=== PATIENT | male | born 1985 | race Caucasian/White ===

== ENCOUNTER 2022-03-11 16:28 | Emergency (ER) | payer BC ==
--- OUTSIDE RECORDS SUMMARY | 2022-03-11 16:47 | XMS REPORT | Continuity of Care Document ---
:1985 Author Organization [facility] t Address [address] [place] [address] Care Team Providers Name Role Phone James Tam Jr. Primary Care Physician Therapy, Adc Covid Infusion Attending Clinician Unavailable Elgin Acharya MD Attending Clinician ELGIN ACHARYA Attending Clinician Unavailable Doctor Unassigned, [place] Attending Clinician Unavailable Payers Payer Name Policy Type Policy Number Effective Date Expiration Date S ource Problems This patient has no known problems. Allergies, Adverse Reactions, Alerts Allergy Allergy Status Severity Reaction(s) Onset Inactive Treating Comm ents Source Name Type Date Date Clinician NO KNOWN Drug Active Univers ALLERGIE Class it[facility] of [facility] Social History Social Habit Start Date Stop Date Quantity Comments Source Sex Assigned At [birth year] [facility] 00:00:00 00:00:00 [facility] Smoking Status Start Date Stop Date Source Unknown if ever smoked [facility] Medications Ordered Filled Start Stop Current Ordering Indication Dosage Frequency Signature Comments Components Source Medication Medication Date Date Medication? Clinician (SIG) Name Name casirivimab 2020- No [id number] 1200mg 1,200 mg, Univers -imdevimab 02-14 Subcutaneo it y of (REGEN-COV 20:15: 18:48 [place], [place]CE, [place] (EUA[place] 00 :00 1 dose, Medical injection Esperanza 02/14/21 Bran ch 1,200 mg at 1515, Routine casirivimab No [id number] 1200mg 1,200 mg, Univers -imdevimab 02-14 Subcutaneo it y of (REGEN-COV 20:15: 18:48 us, ONCE, [place] (EUA)) 00 :00 1 dose, Medical injection Esperanza 02/14/21 Bran ch 1,200 mg at 1515, Routine Vital Signs Vital Name Observation Time Observation Value Comments Source Systolic blood 2021-02-14 19:31:00 108 mm[Hg] Univer [facility] Diastolic blood 2021-02-14 19:31:00 75 mm[Hg] Unive rsity [facility] Heart rate 2021-02-14 19:31:00 82 /min [facility] Body temperature 2021-02-14 19:31:00 36.56 [facility] Respiratory rate 2021-02-14 19:31:00 18 /min General acute hospital Oxygen saturation in 2021-02-14 19:31:00 97 /min [facility] Arterial blood by [facility] Pulse oximetry [place] Body height 2021-02-14 18:48:00 175.3 cm [facility] Body weight 2021-02-14 18:48:00 86.183 kg [facility] BMI 2021-02-14 18:48:00 28.06 kg/m2 [facility] Procedures Procedure Date / Time Performed Performing Clinician Sourc e [id number] CONSENT 2021-02-14 05:01:00 [facility] Start End Encounter Admission Attending Care Care Encounter Source Date/Time Date/Time Type Type Clinicians Facility Department ID 2021-02-14 2021-02-14 Nurse Therapy, Adc Covid Infusion [facility] [id number] Univers 13:58:55 14:58:55 Visit Elgin Acharya [id number] [id number] [id number] [facility] [address] 2021-02-14 2021-02-14 Outpatient R NESHA [facility] [id number] Univers 14:00:00 14:00:00 ELGIN [facility]rell [facility] 2021-02-14 2021-02-14 Orders Doctor ABDIEL [id number] Univers 00:00:00 00:00:00 Only Unassigned, JONNIE [id number] ity of [place] [facility] [id number] Naren as [phone] [facility] [address] Results This patient has no known results.
[2022-03-11] MEDS ORDERED: dexAMETHasone 10 MG/ML VIAL ONE (17:59)
[2022-03-11] MEDS ORDERED: IPRATROPIUM BROM 0.5MG/2.5ML ONE (17:59)
[2022-03-11] MEDS ORDERED: ALBUTEROL 2.5 MG/3 ML NEB SOL ONE (17:59)
[2022-03-11 19:00] LABS: Absolute Lymphocytes (CBC) 3.7 K/uL (0.7-4.9); Hematocrit 42.4 % (39.6-49.0); Lymphocytes % 54.9 % (15.3-44.8); MCV 91.4 fL (80-100); MPV 8.4 fL (7.6-11.3); RBC Red Blood Cell Count 4.63 M/uL (4.33-5.43)
[2022-03-11 19:08] LABS: Protime INR 1.01
[2022-03-11 19:17] LABS: Bilirubin Direct 0.1 mg/dL (0-0.2); Bilirubin Total 0.3 mg/dL (0.2-1.0); Magnesium 2.4 mg/dL (1.8-2.4); Potassium 3.6 mmol/L (3.5-5.1); Protein, Total 7.7 g/dL (6.4-8.2); Troponin High Sensitivity 4.6 pg/mL (<58.9)
--- NOTE | 2022-03-11 19:56 | EDPHYS ---
Physician Documentation [facility] Name: Maxime Layton Age: 36 yrs Sex: Male : 1985 Arrival Date: 03/11/2022 Time: 16:31 Bed 26 Private MD: ED Physician Massimo Camacho HPI: 03/11 18:31 This 36 yrs old Male presents to ER via Ambulatory with complaints of Shortness Of pm1 Breath. 18:31 The patient has shortness of breath at rest. Onset: The symptoms/episode began/occurred pm1 3 week(s) ago, weekend. Duration: The symptoms are continuous. The patient's shortness of breath is aggravated by nothing, is alleviated by nothing. Associated signs and symptoms: Pertinent positives: chest pain, productive cough, Pertinent negatives: fever, nausea, vomiting. Severity of symptoms: in the emergency department the symptoms are unchanged. The patient has been recently seen at an urgent care, today, for similar complaints, X-rays were performed, and was sent to the [facility] Emergency Department for further evaluation. Historical: - Allergies: 16:36 No Known Allergies; bm7 - Home Meds: 16:36 Xopenex 0.63 mg/3 mL Nebulizer nebu 3 mL every 8 hours [Active]; bm7 - PMHx: 16:36 None; bm7 - PSHx: 16:36 Appendectomy; Tonsillectomy; bm7 - Immunization history:: Adult Immunizations up to date, Client reports receiving the 2nd dose of the Covid vaccine, Client reports receiving the 1st dose of the Covid vaccine. - Social history:: Smoking status: Patient denies any tobacco usage or history of. ROS: 18:31 Constitutional: Negative for fever, chills, and weight loss. pm1 18:31 Abdomen/GI: Negative for abdominal pain, nausea, vomiting, diarrhea, and constipation, Back: Negative for injury and pain, MS/Extremity: Negative for injury and deformity, Skin: Negative for injury, rash, and discoloration, Neuro: Negative for headache, weakness, numbness, tingling, and seizure. 18:31 Cardiovascular: Positive for chest pain, with cough. 18:31 Respiratory: Positive for cough, shortness of breath. 18:31 All other systems are negative. Exam: 18:31 Constitutional: This is a well developed, well nourished patient who is awake, alert, pm1 and in no acute distress. Head/Face: Normocephalic, atraumatic. 18:31 Back: No spinal tenderness. No costovertebral tenderness. Full range of motion. Skin: Warm, dry with normal turgor. Normal color with no rashes, no lesions, and no evidence of cellulitis. MS/ Extremity: Pulses equal, no cyanosis. Neurovascular intact. Full, normal range of motion. 18:31 Eyes: Exam is negative for acute changes, Periorbital structures: appear normal, Pupils: no acute changes. 18:31 ENT: Exam is negative for acute changes, Mouth: no acute changes, Lips: normal, moist, Oral mucosa: normal, pink and intact, moist. 18:31 Cardiovascular: Exam negative for acute changes, Rate: bradycardic, Rhythm: regular, Pulses: no pulse deficits are appreciated, Heart sounds: normal, normal S1and S2. 18:31 Respiratory: Exam negative for acute changes, respiratory distress, shortness of breath, Breath sounds: are clear throughout. 18:31 Abdomen/GI: Exam negative for acute changes, Inspection: abdomen appears normal, Palpation: abdomen is soft and non-tender, in all quadrants. 18:31 Neuro: Exam negative for acute changes, Orientation: is normal, Mentation: is normal, Motor: is normal, moves all fours. Vital Signs: 16:34 BP 128 / 79; Pulse 66; Resp 16; Temp 98.2(TE); Pulse Ox 100% on R/A; Weight 88.45 kg bm7 (R); Height 5 ft. 9 in. (175.26 cm); Pain 3/10; 16:34 Body Mass Index 28.80 (88.45 kg, 175.26 cm) bm7 MDM: 17:35 Patient medically screened. anthony 18:32 ED course: Patient with xray from urgent care prior to arrival that was read by a pm1 radiologist that is negative for any acute findings. Therefore no need to repeat the xray. He was sent by the urgent care for evaluation due to the negative xray result with continued shortness of breath. 19:53 Data reviewed: vital signs. Data interpreted: Pulse oximetry: on room air is 100 %. pm1 Interpretation: normal. 19:53 Counseling: I had a detailed discussion with the patient and/or guardian regarding: the pm1 historical points, exam findings, and any diagnostic results supporting the discharge/admit diagnosis, lab results, the need for outpatient follow up, to return to the emergency department if symptoms worsen or persist or if there are any questions or concerns that arise at home. 03/11 18:31 Order name: Basic Metabolic Panel; Complete Time: 19:22 pm03/11 18:31 Order name: CBC with Diff; Complete Time: 19:04 pm03/11 18:31 Order name: D-Dimer; Complete Time: 19:22 pm03/11 18:31 Order name: LFT's; Complete Time: 19:22 pm03/11 18:31 Order name: Magnesium; Complete Time: 19:22 pm03/11 18:31 Order name: NT PRO-BNP; Complete Time: 19:22 pm03/11 18:31 Order name: PT-INR; Complete Time: 19:22 pm03/11 18:31 Order name: Troponin HS; Complete Time: 19:22 pm03/11 18:31 Order name: EKG; Complete Time: 18:32 pm1 03/11 18:31 Order name: Cardiac monitoring; Complete Time: 18:37 pm1 03/11 18:31 Order name: EKG - Nurse/Tech; Complete Time: 18:37 pm03/11 18:31 Order name: IV Saline Lock; Complete Time: 18:37 pm1 03/11 18:31 Order name: Labs collected and sent; Complete Time: 18:37 pm03/11 18:31 Order name: O2 Per Protocol; Complete Time: 18:37 pm03/11 18:31 Order name: O2 Sat Monitoring; Complete Time: 18:37 pm1 EC:57 Rate is 54 beats/min. Rhythm is regular, Sinus bradycardia with No ectopy. QRS [place] is pm1 Normal. VA interval is normal. QRS interval is normal. QT interval is normal. No Q waves. T waves are Normal. No ST changes noted. Clinical impression: Sinus bradycardia. Administered Medications: 18:01 Drug: Decadron (dexamethasone) 10 mg Route: IM; Site: left deltoid; [facility] 18: Drug: Albuterol 2.5 mg Route: Inhalation; 5 18:01 Drug: AtroVENT (ipratropium) Aerosol 0.5 mg Route: Inhalation; 5 20:21 Drug: Tussionex Pennkinetic ER (chlorpheniramine-hydrocodone) Suspension 5 ml Route: PO;jh5 Disposition Summary: 03/11/22 19:56 Discharge Ordered Location: Home pm1 Problem: new pm1 Symptoms: have improved pm1 Condition: Stable pm1 Diagnosis - Acute upper respiratory infection, unspecified pm1 Followup: pm1 - With: Emergency Department - When: As needed - Reason: Worsening of condition Followup: pm1 - With: Private Physician - When: 2 - 3 days - Reason: Recheck today's complaints, Continuance of care, Re-evaluation by your physician Discharge Instructions: - Discharge Summary Sheet pm1 - Antibiotic Resistance pm1 - Upper Respiratory Infection, Adult pm1 - Viral Respiratory Infection pm1 Forms: - Medication Reconciliation Form pm1 - Thank You Letter pm1 - Antibiotic Education pm1 - Prescription Opioid Use pm1 Prescriptions: - Medrol (Nate) 4 mg Oral Tablets, Dose Pack - take 1 tablet by ORAL route as directed - follow package instructions; 1 pm1 packet; Refills: 0, Product Selection Permitted - Guaifenesin AC 10-100 mg/5 mL Oral Liquid - take 10 milliliters by ORAL route every 4 hours As needed; 240 milliliter; pm1 Refills: 0, Product Selection Permitted Signatures: Dispatcher [employer] EDMassimo Fay MD MD cha Marinas, Patrick, AIRCRAFT SYSTEMS TECHNICIAN AIRCRAFT SYSTEMS TECHNICIAN pm1 Keisha Alberto, RN RN bm7 Sammi Steele RN RN jh5 Corrections: (The following items were deleted from the chart) 16:37 16:36 PMHx: Asthma; bm7 bm7
--- NOTE | 2022-03-11 19:56 | ER ---
Nurse's Notes [facility] Name: Maxime Layton Age: 36 yrs Sex: Male : 1985 Arrival Date: 03/11/2022 Time: 16:31 Bed 26 Private MD: Diagnosis: Acute upper respiratory infection, unspecified Presentation: 03/11 16:34 Chief complaint: Patient states: I have had to use my inhaler five times today. I went [facility] to urgent care and they told me to come here because my chest xray was normal and I was still SOB. Coronavirus screen: Client presents with at least one sign or symptom that may indicate coronavirus-19. Ebola Screen: No symptoms or risks identified at this time. Initial Sepsis Screen: Does the patient meet any 2 criteria? No. Patient's initial sepsis screen is negative. Does the patient have a suspected source of infection? No. Patient's initial sepsis screen is negative. Risk Assessment: Do you want to hurt yourself or someone else? Patient reports no desire to harm self or others. Onset of symptoms is unknown. 16:34 Method Of Arrival: Ambulatory [facility] 16:34 Acuity: JACQUES 3 bm7 Triage Assessment: 16:36 General: Appears in no apparent distress. uncomfortable, Behavior is calm, cooperative, bm7 appropriate for age. Pain: Complains of pain in right leg and left leg. EENT: No deficits noted. No signs and/or symptoms were reported regarding the EENT system. Neuro: No deficits noted. Cardiovascular: No deficits noted. Respiratory: Reports shortness of breath at rest on exertion Airway is patent Respiratory effort is even, unlabored, Respiratory pattern is regular, symmetrical, Breath sounds are clear bilaterally. Onset: The symptoms/episode began/occurred gradually, the patient has mild shortness of breath. GI: No deficits noted. No signs and/or symptoms were reported involving the gastrointestinal system. : No deficits noted. No signs and/or symptoms were reported regarding the genitourinary system. Derm: No deficits noted. No signs and/or symptoms reported regarding the dermatologic system. Musculoskeletal: No deficits noted. No signs and/or symptoms reported regarding the musculoskeletal system. Historical: - Allergies: 16:36 No Known Allergies; [facility] - Home Meds: 16:36 Xopenex 0.63 mg/3 mL Nebulizer nebu 3 mL every 8 hours [Active]; 7 - PMHx: 16:36 None; bm7 - PSHx: 16:36 Appendectomy; Tonsillectomy; 7 - Immunization history:: Adult Immunizations up to date, Client reports receiving the 2nd dose of the Covid vaccine, Client reports receiving the 1st dose of the Covid vaccine. - Social history:: Smoking status: Patient denies any tobacco usage or history of. Vital Signs: 16:34 BP 128 / 79; Pulse 66; Resp 16; Temp 98.2(TE); Pulse Ox 100% on R/A; Weight 88.45 kg bm7 (R); Height 5 ft. 9 in. (175.26 cm); Pain 3/10; 16:34 Body Mass Index 28.80 (88.45 kg, 175.26 cm) 7 ED Course: 16:31 Patient arrived in ED. mr 16:36 Triage completed. bm7 16:36 Arm band placed on left wrist. bm7 17:34 Konstantin Perkins NP is PHCP. pm1 17:34 Massimo Camacho MD is Attending Physician. pm1 17:53 Sammi Steele, RN is Primary Nurse. [facility] Administered Medications: 18:01 Drug: Decadron (dexamethasone) 10 mg Route: IM; Site: left deltoid; [facility] 18:01 Drug: Albuterol 2.5 mg Route: Inhalation; [facility] 18:01 Drug: AtroVENT (ipratropium) Aerosol 0.5 mg Route: Inhalation; [facility] 20:21 Drug: Tussionex Pennkinetic ER (chlorpheniramine-hydrocodone) Suspension 5 ml Route: PO;[facility] Outcome: 19:56 Discharge ordered by . pm1 20:22 Patient left the ED. [facility] Signatures: Jeanna Burnette mr Konstantin Perkins, EILEEN AIR PUMPER pm1 Keisha Alberto RN RN [facility] Sammi Steele, [place] RN [facility] Corrections: (The following items were deleted from the chart) 16:37 16:36 PMHx: Asthma; 7 [facility]
[2022-03-11] MEDS ORDERED: HYDROCODONE/CHLORPHEN 5 ML/OSYR ONE (20:15)
--- NOTE | 2022-03-12 13:06 | EKG ---
Test Date: 2022-03-11 Test Time: 18:42:18 Electric Motor Tester: TM MEASUREMENT RESULTS: Intervals: Rate: 54 CA: 124 QRSD: 94 QT: 434 QTc: 411 [place]: P: 25 CA: 124 QRS: 49 T: 44 INTERPRETIVE STATEMENTS: Sinus bradycardia Otherwise normal ECG No previous ECG available for comparison Electronically Signed On 03-12-22 13:04:52 CDT by Margarito Yancey
[2022-03-14 00:23] VITALS: BP 128/79; TEMP 98.2; O2SAT 100
== END 2022-03-11 20:22 | disposition home or self-care (01) ==
LOC: ER 16:28
DX: J06.9 Acute upper respiratory infection, unspecified (principal)
CPT/HCPCS: 93005; 85025; 80048; 36415; 83735; 85610; 85379; 80076; 84484; 83880; 96372; 99284; J1100

== ENCOUNTER 2023-12-15 22:34 | Emergency (ER) | payer BC ==
--- OUTSIDE RECORDS SUMMARY | 2023-12-15 22:41 | XMS REPORT | Continuity of Care Document ---
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 HEPATITIS A 2012-09-22 00:00:00 Completed [facility] Typhoid Vaccine, Vi Capsular Polysaccharide, IM 2012-09-22 00:00:00 Completed [facility] Anthrax Vaccine 2012-09-22 00:00:00 Completed [facility] Influenza Virus Vaccine Nasal 2012-09-22 00:00:00 Completed [facility] HEPATITIS A 2012-09-22 00:00:00 Completed [facility] Typhoid Vaccine, Vi Capsular Polysaccharide, IM 2012-09-22 00:00:00 Completed [facility] Anthrax Vaccine 2012-09-22 00:00:00 Completed [facility] Influenza Virus Vaccine Nasal 2012-09-22 00:00:00 Completed [facility] HEPATITIS A 2012-09-22 00:00:00 Completed [facility] Typhoid Vaccine, Vi Capsular Polysaccharide, IM 2012-09-22 00:00:00 Completed [facility] Anthrax Vaccine 2012-09-22 00:00:00 Completed [facility] Influenza Virus Vaccine Nasal 2012-09-22 00:00:00 Completed [facility] HEPATITIS A 2012-09-22 00:00:00 Completed [facility] Typhoid Vaccine, Vi Capsular Polysaccharide, IM 2012-09-22 00:00:00 Completed [facility] Anthrax Vaccine 2012-09-22 00:00:00 Completed [facility] Influenza Virus Vaccine Nasal 2012-09-22 00:00:00 Completed [facility] HEPATITIS A 2012-09-22 00:00:00 Completed [facility] Typhoid Vaccine, Vi Capsular Polysaccharide, IM 2012-09-22 00:00:00 Completed [facility] Anthrax Vaccine 2012-09-22 00:00:00 Completed [facility] Influenza Virus Vaccine Nasal 2012-09-22 00:00:00 Completed [facility] HEPATITIS A 2012-09-22 00:00:00 Completed [facility] Typhoid Vaccine, Vi Capsular Polysaccharide, IM 2012-09-22 00:00:00 Completed [facility] Anthrax Vaccine 2012-09-22 00:00:00 Completed [facility] HEPATITIS A 2012-09-22 00:00:00 Completed [facility] Influenza Virus Vaccine Nasal 2012-09-22 00:00:00 Completed [facility] Typhoid Vaccine, Vi Capsular Polysaccharide, IM 2012-09-22 00:00:00 Completed [facility] HEPATITIS A 2012-09-22 00:00:00 Completed [facility] Typhoid Vaccine, Vi Capsular Polysaccharide, IM 2012-09-22 00:00:00 Completed [facility] Anthrax Vaccine 2012-09-22 00:00:00 Completed [facility] Anthrax Vaccine 2012-09-22 00:00:00 Completed [facility] Influenza Virus Vaccine Nasal 2012-09-22 00:00:00 Completed [facility] HEPATITIS A 2012-09-22 00:00:00 Completed [facility] Typhoid Vaccine, Vi Capsular Polysaccharide, IM 2012-09-22 00:00:00 Completed [facility] Anthrax Vaccine 2012-09-22 00:00:00 Completed [facility] Influenza Virus Vaccine Nasal 2012-09-22 00:00:00 Completed [facility] HEPATITIS A 2012-09-22 00:00:00 Completed [facility] Typhoid Vaccine, Vi Capsular Polysaccharide, IM 2012-09-22 00:00:00 Completed [facility] Anthrax Vaccine 2012-09-22 00:00:00 Completed [facility] Influenza Virus Vaccine Nasal 2012-09-22 00:00:00 Completed [facility] Influenza Virus Vaccine Nasal 2012-09-22 00:00:00 Completed [facility] HEPATITIS A 2012-09-22 00:00:00 Completed [facility] Typhoid Vaccine, Vi Capsular Polysaccharide, IM 2012-09-22 00:00:00 Completed [facility] Anthrax Vaccine 2012-09-22 00:00:00 Completed [facility] Influenza Virus Vaccine Nasal 2012-09-22 00:00:00 Completed [facility] HEPATITIS A 2012-09-22 00:00:00 Completed [facility] Typhoid Vaccine, Vi Capsular Polysaccharide, IM 2012-09-22 00:00:00 Completed [facility] Anthrax Vaccine 2012-09-22 00:00:00 Completed [facility] Influenza Virus Vaccine Nasal 2012-09-22 00:00:00 Completed [facility] HEPATITIS A 2012-09-22 00:00:00 Completed [facility] Typhoid Vaccine, Vi Capsular Polysaccharide, IM 2012-09-22 00:00:00 Completed [facility] Anthrax Vaccine 2012-09-22 00:00:00 Completed [facility] Influenza Virus Vaccine Nasal 2012-09-22 00:00:00 Completed [facility] HEPATITIS A 2012-09-22 00:00:00 Completed [facility] Typhoid Vaccine, Vi Capsular Polysaccharide, IM 2012-09-22 00:00:00 Completed [facility] Anthrax Vaccine 2012-09-22 00:00:00 Completed [facility] Influenza Virus Vaccine Nasal 2012-09-22 00:00:00 Completed [facility] Influenza Virus Vaccine Nasal 2011-03-15 00:00:00 Completed [facility] Influenza Virus Vaccine Nasal 2011-03-15 00:00:00 Completed [facility] Influenza Virus Vaccine Nasal 2011-03-15 00:00:00 Completed [facility] Influenza Virus Vaccine Nasal 2011-03-15 00:00:00 Completed [facility] Influenza Virus Vaccine Nasal 2011-03-15 00:00:00 Completed [facility] Influenza Virus Vaccine Nasal 2011-03-15 00:00:00 Completed [facility] Influenza Virus Vaccine Nasal 2011-03-15 00:00:00 Completed [facility] Influenza Virus Vaccine Nasal 2011-03-15 00:00:00 Completed [facility] Influenza Virus Vaccine Nasal 2011-03-15 00:00:00 Completed [facility] Influenza Virus Vaccine Nasal 2011-03-15 00:00:00 Completed [facility] Influenza Virus Vaccine Nasal 2011-03-15 00:00:00 Completed [facility] Influenza Virus Vaccine Nasal 2011-03-15 00:00:00 Completed [facility] Influenza Virus Vaccine Nasal 2011-03-15 00:00:00 Completed [facility] Influenza Virus Vaccine Nasal 2011-03-15 00:00:00 Completed [facility] Influenza Virus Vaccine Nasal 2011-03-15 00:00:00 Completed [facility] Influenza Virus Vaccine Nasal 2011-03-15 00:00:00 Completed [facility] Influenza Virus Vaccine Nasal 2011-03-15 00:00:00 Completed [facility] Influenza Virus Vaccine Nasal 2011-03-15 00:00:00 Completed [facility] Influenza Virus Vaccine Nasal 2011-03-15 00:00:00 Completed [facility] Influenza Virus Vaccine Nasal 2011-03-15 00:00:00 Completed [facility] Influenza Virus Vaccine Nasal 2011-03-15 00:00:00 Completed [facility] Influenza Virus Vaccine Nasal 2011-03-15 00:00:00 Completed [facility] Influenza Virus Vaccine Nasal 2011-03-15 00:00:00 Completed [facility] Influenza Virus Vaccine Nasal 2011-03-15 00:00:00 Completed [facility] Influenza Virus Vaccine Nasal 2011-03-15 00:00:00 Completed [facility] Influenza Virus Vaccine Nasal 2011-03-15 00:00:00 Completed [facility] TDAP 2010-11-23 00:00:00 Completed [facility] TDAP 2010-11-23 00:00:00 Completed [facility] TDAP 2010-11-23 00:00:00 Completed [facility] TDAP 2010-11-23 00:00:00 Completed [facility] TDAP 2010-11-23 00:00:00 Completed [facility] TDAP 2010-11-23 00:00:00 Completed [facility] TDAP 2010-11-23 00:00:00 Completed [facility] TDAP 2010-11-23 00:00:00 Completed [facility] TDAP 2010-11-23 00:00:00 Completed [facility] TDAP 2010-11-23 00:00:00 Completed [facility] TDAP 2010-11-23 00:00:00 Completed [facility] TDAP 2010-11-23 00:00:00 Completed [facility] TDAP 2010-11-23 00:00:00 Completed [facility] TDAP 2010-11-23 00:00:00 Completed [facility] TDAP 2010-11-23 00:00:00 Completed [facility] TDAP 2010-11-23 00:00:00 Completed [facility] TDAP 2010-11-23 00:00:00 Completed [facility] TDAP 2010-11-23 00:00:00 Completed [facility] TDAP 2010-11-23 00:00:00 Completed [facility] TDAP 2010-11-23 00:00:00 Completed [facility] TDAP 2010-11-23 00:00:00 Completed [facility] TDAP 2010-11-23 00:00:00 Completed [facility] TDAP 2010-11-23 00:00:00 Completed [facility] TDAP 2010-11-23 00:00:00 Completed [facility] TDAP 2010-11-23 00:00:00 Completed [facility] TDAP 2010-11-23 00:00:00 Completed [facility] Influenza Virus Vaccine Nasal 2008-06-24 00:00:00 Completed [facility] Influenza Virus Vaccine Nasal 2008-06-24 00:00:00 Completed [facility] Influenza Virus Vaccine Nasal 2008-06-24 00:00:00 Completed [facility] Influenza Virus Vaccine Nasal 2008-06-24 00:00:00 Completed [facility] Influenza Virus Vaccine Nasal 2008-06-24 00:00:00 Completed [facility] Influenza Virus Vaccine Nasal 2008-06-24 00:00:00 Completed [facility] Influenza Virus Vaccine Nasal 2008-06-24 00:00:00 Completed [facility] Influenza Virus Vaccine Nasal 2008-06-24 00:00:00 Completed [facility] Influenza Virus Vaccine Nasal 2008-06-24 00:00:00 Completed [facility] Influenza Virus Vaccine Nasal 2008-06-24 00:00:00 Completed [facility] Influenza Virus Vaccine Nasal 2008-06-24 00:00:00 Completed [facility] Influenza Virus Vaccine Nasal 2008-06-24 00:00:00 Completed [facility] Influenza Virus Vaccine Nasal 2008-06-24 00:00:00 Completed [facility] Influenza Virus Vaccine Nasal 2008-06-24 00:00:00 Completed [facility] Influenza Virus Vaccine Nasal 2008-06-24 00:00:00 Completed [facility] Influenza Virus Vaccine Nasal 2008-06-24 00:00:00 Completed [facility] Influenza Virus Vaccine Nasal 2008-06-24 00:00:00 Completed [facility] Influenza Virus Vaccine Nasal 2008-06-24 00:00:00 Completed [facility] Influenza Virus Vaccine Nasal 2008-06-24 00:00:00 Completed [facility] Influenza Virus Vaccine Nasal 2008-06-24 00:00:00 Completed [facility] Influenza Virus Vaccine Nasal 2008-06-24 00:00:00 Completed [facility] Influenza Virus Vaccine Nasal 2008-06-24 00:00:00 Completed [facility] Influenza Virus Vaccine Nasal 2008-06-24 00:00:00 Completed [facility] Influenza Virus Vaccine Nasal 2008-06-24 00:00:00 Completed [facility] Influenza Virus Vaccine Nasal 2008-06-24 00:00:00 Completed [facility] Influenza Virus Vaccine Nasal 2008-06-24 00:00:00 Completed [facility] Flu Split Virus, PSA 2006-05-13 00:00:00 Completed [facility] Flu Split Virus, PSA 2006-05-13 00:00:00 Completed [facility] Flu Split Virus, PSA 2006-05-13 00:00:00 Completed [facility] Flu Split Virus, PSA 2006-05-13 00:00:00 Completed [facility] Flu Split Virus, PSA 2006-05-13 00:00:00 Completed [facility] Flu Split Virus, PSA 2006-05-13 00:00:00 Completed [facility] Flu Split Virus, PSA 2006-05-13 00:00:00 Completed [facility] Flu Split Virus, PSA 2006-05-13 00:00:00 Completed [facility] Flu Split Virus, PSA 2006-05-13 00:00:00 Completed [facility] Flu Split Virus, PSA 2006-05-13 00:00:00 Completed [facility] Flu Split Virus, PSA 2006-05-13 00:00:00 Completed [facility] Flu Split Virus, PSA 2006-05-13 00:00:00 Completed [facility] Flu Split Virus, PSA 2006-05-13 00:00:00 Completed [facility] Flu Split Virus, PSA 2006-05-13 00:00:00 Completed [facility] Flu Split Virus, PSA 2006-05-13 00:00:00 Completed [facility] Flu Split Virus, PSA 2006-05-13 00:00:00 Completed [facility] Flu Split Virus, PSA 2006-05-13 00:00:00 Completed [facility] Flu Split Virus, PSA 2006-05-13 00:00:00 Completed [facility] Flu Split Virus, PSA 2006-05-13 00:00:00 Completed [facility] Flu Split Virus, PSA 2006-05-13 00:00:00 Completed [facility] Flu Split Virus, PSA 2006-05-13 00:00:00 Completed [facility] Flu Split Virus, PSA 2006-05-13 00:00:00 Completed [facility] Flu Split Virus, PSA 2006-05-13 00:00:00 Completed [facility] Flu Split Virus, PSA 2006-05-13 00:00:00 Completed [facility] Flu Split Virus, PSA 2006-05-13 00:00:00 Completed [facility] Flu Split Virus, PSA 2006-05-13 00:00:00 Completed [facility] Anthrax Vaccine 2005-09-11 00:00:00 Completed [facility] Anthrax Vaccine 2005-09-11 00:00:00 Completed [facility] Anthrax Vaccine 2005-09-11 00:00:00 Completed [facility] Anthrax Vaccine 2005-09-11 00:00:00 Completed [facility] Anthrax Vaccine 2005-09-11 00:00:00 Completed [facility] Anthrax Vaccine 2005-09-11 00:00:00 Completed [facility] Anthrax Vaccine 2005-09-11 00:00:00 Completed [facility] Anthrax Vaccine 2005-09-11 00:00:00 Completed [facility] Anthrax Vaccine 2005-09-11 00:00:00 Completed [facility] Anthrax Vaccine 2005-09-11 00:00:00 Completed [facility] Anthrax Vaccine 2005-09-11 00:00:00 Completed [facility] Anthrax Vaccine 2005-09-11 00:00:00 Completed [facility] Anthrax Vaccine 2005-09-11 00:00:00 Completed [facility] Anthrax Vaccine 2005-09-11 00:00:00 Completed [facility] Anthrax Vaccine 2005-09-11 00:00:00 Completed [facility] Anthrax Vaccine 2005-09-11 00:00:00 Completed [facility] Anthrax Vaccine 2005-09-11 00:00:00 Completed [facility] Anthrax Vaccine 2005-09-11 00:00:00 Completed [facility] Anthrax Vaccine 2005-09-11 00:00:00 Completed [facility] Anthrax Vaccine 2005-09-11 00:00:00 Completed [facility] Anthrax Vaccine 2005-09-11 00:00:00 Completed [facility] Anthrax Vaccine 2005-09-11 00:00:00 Completed [facility] Anthrax Vaccine 2005-09-11 00:00:00 Completed [facility] Anthrax Vaccine 2005-09-11 00:00:00 Completed [facility] Anthrax Vaccine 2005-09-11 00:00:00 Completed [facility] Anthrax Vaccine 2005-09-11 00:00:00 Completed [facility] Anthrax Vaccine 2005-08-26 00:00:00 Completed [facility] Smallpox 2005-08-26 00:00:00 Completed [facility] Anthrax Vaccine 2005-08-26 00:00:00 Completed [facility] Smallpox 2005-08-26 00:00:00 Completed [facility] Anthrax Vaccine 2005-08-26 00:00:00 Completed [facility] Smallpox 2005-08-26 00:00:00 Completed [facility] Anthrax Vaccine 2005-08-26 00:00:00 Completed [facility] Smallpox 2005-08-26 00:00:00 Completed [facility] Anthrax Vaccine 2005-08-26 00:00:00 Completed [facility] Smallpox 2005-08-26 00:00:00 Completed [facility] Anthrax Vaccine 2005-08-26 00:00:00 Completed [facility] Smallpox 2005-08-26 00:00:00 Completed [facility] Anthrax Vaccine 2005-08-26 00:00:00 Completed [facility] Smallpox 2005-08-26 00:00:00 Completed [facility] Anthrax Vaccine 2005-08-26 00:00:00 Completed [facility] Smallpox 2005-08-26 00:00:00 Completed [facility] Anthrax Vaccine 2005-08-26 00:00:00 Completed [facility] Smallpox 2005-08-26 00:00:00 Completed [facility] Anthrax Vaccine 2005-08-26 00:00:00 Completed [facility] Smallpox 2005-08-26 00:00:00 Completed [facility] Anthrax Vaccine 2005-08-26 00:00:00 Completed [facility] Smallpox 2005-08-26 00:00:00 Completed [facility] Anthrax Vaccine 2005-08-26 00:00:00 Completed [facility] Smallpox 2005-08-26 00:00:00 Completed [facility] Anthrax Vaccine 2005-08-26 00:00:00 Completed [facility] Smallpox 2005-08-26 00:00:00 Completed [facility] Anthrax Vaccine 2005-08-26 00:00:00 Completed [facility] Smallpox 2005-08-26 00:00:00 Completed [facility] Anthrax Vaccine 2005-08-26 00:00:00 Completed [facility] Smallpox 2005-08-26 00:00:00 Completed [facility] Anthrax Vaccine 2005-08-26 00:00:00 Completed [facility] Smallpox 2005-08-26 00:00:00 Completed [facility] Anthrax Vaccine 2005-08-26 00:00:00 Completed [facility] Smallpox 2005-08-26 00:00:00 Completed [facility] Anthrax Vaccine 2005-08-26 00:00:00 Completed [facility] Smallpox 2005-08-26 00:00:00 Completed [facility] Anthrax Vaccine 2005-08-26 00:00:00 Completed [facility] Smallpox 2005-08-26 00:00:00 Completed [facility] Anthrax Vaccine 2005-08-26 00:00:00 Completed [facility] Anthrax Vaccine 2005-08-26 00:00:00 Completed [facility] Smallpox 2005-08-26 00:00:00 Completed [facility] Anthrax Vaccine 2005-08-26 00:00:00 Completed [facility] Smallpox 2005-08-26 00:00:00 Completed [facility] Anthrax Vaccine 2005-08-26 00:00:00 Completed [facility] Smallpox 2005-08-26 00:00:00 Completed [facility] Anthrax Vaccine 2005-08-26 00:00:00 Completed [facility] Smallpox 2005-08-26 00:00:00 Completed [facility] Anthrax Vaccine 2005-08-26 00:00:00 Completed [facility] Smallpox 2005-08-26 00:00:00 Completed [facility] Smallpox 2005-08-26 00:00:00 Completed [facility] Anthrax Vaccine 2005-08-26 00:00:00 Completed [facility] Smallpox 2005-08-26 00:00:00 Completed [facility] Typhoid Vaccine, Vi Capsular Polysaccharide, IM 2005-07-28 00:00:00 Completed [facility] Anthrax Vaccine 2005-07-28 00:00:00 Completed [facility] Twinrix (hep a/hep b) 2005-07-28 00:00:00 Completed [facility] Flu Split Virus, PSA 2005-07-28 00:00:00 Completed [facility] Typhoid Vaccine, Vi Capsular Polysaccharide, IM 2005-07-28 00:00:00 Completed [facility] Anthrax Vaccine 2005-07-28 00:00:00 Completed [facility] Twinrix (hep a/hep b) 2005-07-28 00:00:00 Completed [facility] Flu Split Virus, PSA 2005-07-28 00:00:00 Completed [facility] Typhoid Vaccine, Vi Capsular Polysaccharide, IM 2005-07-28 00:00:00 Completed [facility] Anthrax Vaccine 2005-07-28 00:00:00 Completed [facility] Twinrix (hep a/hep b) 2005-07-28 00:00:00 Completed [facility] Flu Split Virus, PSA 2005-07-28 00:00:00 Completed [facility] Typhoid Vaccine, Vi Capsular Polysaccharide, IM 2005-07-28 00:00:00 Completed [facility] Anthrax Vaccine 2005-07-28 00:00:00 Completed [facility] Twinrix (hep a/hep b) 2005-07-28 00:00:00 Completed [facility] Flu Split Virus, PSA 2005-07-28 00:00:00 Completed [facility] Typhoid Vaccine, Vi Capsular Polysaccharide, IM 2005-07-28 00:00:00 Completed [facility] Anthrax Vaccine 2005-07-28 00:00:00 Completed [facility] Twinrix (hep a/hep b) 2005-07-28 00:00:00 Completed [facility] Flu Split Virus, PSA 2005-07-28 00:00:00 Completed [facility] Typhoid Vaccine, Vi Capsular Polysaccharide, IM 2005-07-28 00:00:00 Completed [facility] Anthrax Vaccine 2005-07-28 00:00:00 Completed [facility] Twinrix (hep a/hep b) 2005-07-28 00:00:00 Completed [facility] Flu Split Virus, PSA 2005-07-28 00:00:00 Completed [facility] Typhoid Vaccine, Vi Capsular Polysaccharide, IM 2005-07-28 00:00:00 Completed [facility] Anthrax Vaccine 2005-07-28 00:00:00 Completed [facility] Twinrix (hep a/hep b) 2005-07-28 00:00:00 Completed [facility] Flu Split Virus, PSA 2005-07-28 00:00:00 Completed [facility] Typhoid Vaccine, Vi Capsular Polysaccharide, IM 2005-07-28 00:00:00 Completed [facility] Anthrax Vaccine 2005-07-28 00:00:00 Completed [facility] Twinrix (hep a/hep b) 2005-07-28 00:00:00 Completed [facility] Flu Split Virus, PSA 2005-07-28 00:00:00 Completed [facility] Typhoid Vaccine, Vi Capsular Polysaccharide, IM 2005-07-28 00:00:00 Completed [facility] Anthrax Vaccine 2005-07-28 00:00:00 Completed [facility] Twinrix (hep a/hep b) 2005-07-28 00:00:00 Completed [facility] Flu Split Virus, PSA 2005-07-28 00:00:00 Completed [facility] Typhoid Vaccine, Vi Capsular Polysaccharide, IM 2005-07-28 00:00:00 Completed [facility] Anthrax Vaccine 2005-07-28 00:00:00 Completed [facility] Twinrix (hep a/hep b) 2005-07-28 00:00:00 Completed [facility] Flu Split Virus, PSA 2005-07-28 00:00:00 Completed [facility] Typhoid Vaccine, Vi Capsular Polysaccharide, IM 2005-07-28 00:00:00 Completed [facility] Anthrax Vaccine 2005-07-28 00:00:00 Completed [facility] Twinrix (hep a/hep b) 2005-07-28 00:00:00 Completed [facility] Flu Split Virus, PSA 2005-07-28 00:00:00 Completed [facility] Typhoid Vaccine, Vi Capsular Polysaccharide, IM 2005-07-28 00:00:00 Completed [facility] Anthrax Vaccine 2005-07-28 00:00:00 Completed [facility] Twinrix (hep a/hep b) 2005-07-28 00:00:00 Completed [facility] Flu Split Virus, PSA 2005-07-28 00:00:00 Completed [facility] Typhoid Vaccine, Vi Capsular Polysaccharide, IM 2005-07-28 00:00:00 Completed [facility] Anthrax Vaccine 2005-07-28 00:00:00 Completed [facility] Twinrix (hep a/hep b) 2005-07-28 00:00:00 Completed [facility] Flu Split Virus, PSA 2005-07-28 00:00:00 Completed [facility] Typhoid Vaccine, Vi Capsular Polysaccharide, IM 2005-07-28 00:00:00 Completed [facility] Anthrax Vaccine 2005-07-28 00:00:00 Completed [facility] Twinrix (hep a/hep b) 2005-07-28 00:00:00 Completed [facility] Flu Split Virus, PSA 2005-07-28 00:00:00 Completed [facility] Typhoid Vaccine, Vi Capsular Polysaccharide, IM 2005-07-28 00:00:00 Completed [facility] Anthrax Vaccine 2005-07-28 00:00:00 Completed [facility] Twinrix (hep a/hep b) 2005-07-28 00:00:00 Completed [facility] Flu Split Virus, PSA 2005-07-28 00:00:00 Completed [facility] Typhoid Vaccine, Vi Capsular Polysaccharide, IM 2005-07-28 00:00:00 Completed [facility] Anthrax Vaccine 2005-07-28 00:00:00 Completed [facility] Twinrix (hep a/hep b) 2005-07-28 00:00:00 Completed [facility] Flu Split Virus, PSA 2005-07-28 00:00:00 Completed [facility] Typhoid Vaccine, Vi Capsular Polysaccharide, IM 2005-07-28 00:00:00 Completed [facility] Anthrax Vaccine 2005-07-28 00:00:00 Completed [facility] Twinrix (hep a/hep b) 2005-07-28 00:00:00 Completed [facility] Flu Split Virus, PSA 2005-07-28 00:00:00 Completed [facility] Typhoid Vaccine, Vi Capsular Polysaccharide, IM 2005-07-28 00:00:00 Completed [facility] Anthrax Vaccine 2005-07-28 00:00:00 Completed [facility] Twinrix (hep a/hep b) 2005-07-28 00:00:00 Completed [facility] Flu Split Virus, PSA 2005-07-28 00:00:00 Completed [facility] Typhoid Vaccine, Vi Capsular Polysaccharide, IM 2005-07-28 00:00:00 Completed [facility] Anthrax Vaccine 2005-07-28 00:00:00 Completed [facility] Typhoid Vaccine, Vi Capsular Polysaccharide, IM 2005-07-28 00:00:00 Completed [facility] Anthrax Vaccine 2005-07-28 00:00:00 Completed [facility] Twinrix (hep a/hep b) 2005-07-28 00:00:00 Completed [facility] Flu Split Virus, PSA 2005-07-28 00:00:00 Completed [facility] Typhoid Vaccine, Vi Capsular Polysaccharide, IM 2005-07-28 00:00:00 Completed [facility] Anthrax Vaccine 2005-07-28 00:00:00 Completed [facility] Twinrix (hep a/hep b) 2005-07-28 00:00:00 Completed [facility] Flu Split Virus, PSA 2005-07-28 00:00:00 Completed [facility] Twinrix (hep a/hep b) 2005-07-28 00:00:00 Completed [facility] Typhoid Vaccine, Vi Capsular Polysaccharide, IM 2005-07-28 00:00:00 Completed [facility] Anthrax Vaccine 2005-07-28 00:00:00 Completed [facility] Twinrix (hep a/hep b) 2005-07-28 00:00:00 Completed [facility] Flu Split Virus, PSA 2005-07-28 00:00:00 Completed [facility] Flu Split Virus, PSA 2005-07-28 00:00:00 Completed [facility] Typhoid Vaccine, Vi Capsular Polysaccharide, IM 2005-07-28 00:00:00 Completed [facility] Anthrax Vaccine 2005-07-28 00:00:00 Completed [facility] Twinrix (hep a/hep b) 2005-07-28 00:00:00 Completed [facility] Flu Split Virus, PSA 2005-07-28 00:00:00 Completed [facility] Typhoid Vaccine, Vi Capsular Polysaccharide, IM 2005-07-28 00:00:00 Completed [facility] Anthrax Vaccine 2005-07-28 00:00:00 Completed [facility] Twinrix (hep a/hep b) 2005-07-28 00:00:00 Completed [facility] Flu Split Virus, PSA 2005-07-28 00:00:00 Completed [facility] Typhoid Vaccine, Vi Capsular Polysaccharide, IM 2005-07-28 00:00:00 Completed [facility] Anthrax Vaccine 2005-07-28 00:00:00 Completed [facility] Twinrix (hep a/hep b) 2005-07-28 00:00:00 Completed [facility] Flu Split Virus, PSA 2005-07-28 00:00:00 Completed [facility] Typhoid Vaccine, Vi Capsular Polysaccharide, IM 2005-07-28 00:00:00 Completed [facility] Anthrax Vaccine 2005-07-28 00:00:00 Completed [facility] Twinrix (hep a/hep b) 2005-07-28 00:00:00 Completed [facility] Flu Split Virus, PSA 2005-07-28 00:00:00 Completed [facility] Twinrix (hep a/hep b) 2005-04-12 00:00:00 Completed [facility] Twinrix (hep a/hep b) 2005-04-12 00:00:00 Completed [facility] Twinrix (hep a/hep b) 2005-04-12 00:00:00 Completed [facility] Twinrix (hep a/hep b) 2005-04-12 00:00:00 Completed [facility] Twinrix (hep a/hep b) 2005-04-12 00:00:00 Completed [facility] Twinrix (hep a/hep b) 2005-04-12 00:00:00 Completed [facility] Twinrix (hep a/hep b) 2005-04-12 00:00:00 Completed [facility] Twinrix (hep a/hep b) 2005-04-12 00:00:00 Completed [facility] Twinrix (hep a/hep b) 2005-04-12 00:00:00 Completed [facility] Twinrix (hep a/hep b) 2005-04-12 00:00:00 Completed [facility] Twinrix (hep a/hep b) 2005-04-12 00:00:00 Completed [facility] Twinrix (hep a/hep b) 2005-04-12 00:00:00 Completed [facility] Twinrix (hep a/hep b) 2005-04-12 00:00:00 Completed [facility] Twinrix (hep a/hep b) 2005-04-12 00:00:00 Completed [facility] Twinrix (hep a/hep b) 2005-04-12 00:00:00 Completed [facility] Twinrix (hep a/hep b) 2005-04-12 00:00:00 Completed [facility] Twinrix (hep a/hep b) 2005-04-12 00:00:00 Completed [facility] Twinrix (hep a/hep b) 2005-04-12 00:00:00 Completed [facility] Twinrix (hep a/hep b) 2005-04-12 00:00:00 Completed [facility] Twinrix (hep a/hep b) 2005-04-12 00:00:00 Completed [facility] Twinrix (hep a/hep b) 2005-04-12 00:00:00 Completed [facility] Twinrix (hep a/hep b) 2005-04-12 00:00:00 Completed [facility] Twinrix (hep a/hep b) 2005-04-12 00:00:00 Completed [facility] Twinrix (hep a/hep b) 2005-04-12 00:00:00 Completed [facility] Twinrix (hep a/hep b) 2005-04-12 00:00:00 Completed [facility] Twinrix (hep a/hep b) 2005-04-12 00:00:00 Completed [facility] Twinrix (hep a/hep b) 2003-06-23 00:00:00 Completed [facility] Flu Split Virus, PSA 2003-06-23 00:00:00 Completed [facility] Twinrix (hep a/hep b) 2003-06-23 00:00:00 Completed [facility] Flu Split Virus, PSA 2003-06-23 00:00:00 Completed [facility] Twinrix (hep a/hep b) 2003-06-23 00:00:00 Completed [facility] Flu Split Virus, PSA 2003-06-23 00:00:00 Completed [facility] Twinrix (hep a/hep b) 2003-06-23 00:00:00 Completed [facility] Flu Split Virus, PSA 2003-06-23 00:00:00 Completed [facility] Twinrix (hep a/hep b) 2003-06-23 00:00:00 Completed [facility] Flu Split Virus, PSA 2003-06-23 00:00:00 Completed [facility] Twinrix (hep a/hep b) 2003-06-23 00:00:00 Completed [facility] Flu Split Virus, PSA 2003-06-23 00:00:00 Completed [facility] Twinrix (hep a/hep b) 2003-06-23 00:00:00 Completed [facility] Flu Split Virus, PSA 2003-06-23 00:00:00 Completed [facility] Twinrix (hep a/hep b) 2003-06-23 00:00:00 Completed [facility] Flu Split Virus, PSA 2003-06-23 00:00:00 Completed [facility] Twinrix (hep a/hep b) 2003-06-23 00:00:00 Completed [facility] Flu Split Virus, PSA 2003-06-23 00:00:00 Completed [facility] Twinrix (hep a/hep b) 2003-06-23 00:00:00 Completed [facility] Flu Split Virus, PSA 2003-06-23 00:00:00 Completed [facility] Twinrix (hep a/hep b) 2003-06-23 00:00:00 Completed [facility] Flu Split Virus, PSA 2003-06-23 00:00:00 Completed [facility] Twinrix (hep a/hep b) 2003-06-23 00:00:00 Completed [facility] Flu Split Virus, PSA 2003-06-23 00:00:00 Completed [facility] Twinrix (hep a/hep b) 2003-06-23 00:00:00 Completed [facility] Flu Split Virus, PSA 2003-06-23 00:00:00 Completed [facility] Twinrix (hep a/hep b) 2003-06-23 00:00:00 Completed [facility] Flu Split Virus, PSA 2003-06-23 00:00:00 Completed [facility] Twinrix (hep a/hep b) 2003-06-23 00:00:00 Completed [facility] Flu Split Virus, PSA 2003-06-23 00:00:00 Completed [facility] Twinrix (hep a/hep b) 2003-06-23 00:00:00 Completed [facility] Flu Split Virus, PSA 2003-06-23 00:00:00 Completed [facility] Twinrix (hep a/hep b) 2003-06-23 00:00:00 Completed [facility] Flu Split Virus, PSA 2003-06-23 00:00:00 Completed [facility] Twinrix (hep a/hep b) 2003-06-23 00:00:00 Completed [facility] Flu Split Virus, PSA 2003-06-23 00:00:00 Completed [facility] Twinrix (hep a/hep b) 2003-06-23 00:00:00 Completed [facility] Flu Split Virus, PSA 2003-06-23 00:00:00 Completed [facility] Twinrix (hep a/hep b) 2003-06-23 00:00:00 Completed [facility] Twinrix (hep a/hep b) 2003-06-23 00:00:00 Completed [facility] Flu Split Virus, PSA 2003-06-23 00:00:00 Completed [facility] Twinrix (hep a/hep b) 2003-06-23 00:00:00 Completed [facility] Flu Split Virus, PSA 2003-06-23 00:00:00 Completed [facility] Twinrix (hep a/hep b) 2003-06-23 00:00:00 Completed [facility] Flu Split Virus, PSA 2003-06-23 00:00:00 Completed [facility] Flu Split Virus, PSA 2003-06-23 00:00:00 Completed [facility] Twinrix (hep a/hep b) 2003-06-23 00:00:00 Completed [facility] Flu Split Virus, PSA 2003-06-23 00:00:00 Completed [facility] Twinrix (hep a/hep b) 2003-06-23 00:00:00 Completed [facility] Flu Split Virus, PSA 2003-06-23 00:00:00 Completed [facility] Twinrix (hep a/hep b) 2003-06-23 00:00:00 Completed [facility] Flu Split Virus, PSA 2003-06-23 00:00:00 Completed [facility] HEP B, Adult Dosage 2002-06-23 00:00:00 Completed [facility] MMR 2002-06-23 00:00:00 Completed [facility] Meningococcal Vaccine 2002-06-23 00:00:00 Completed [facility] IPV 2002-06-23 00:00:00 Completed [facility] Tetanus/Diptheria 2002-06-23 00:00:00 Completed [facility] HEP B, Adult Dosage 2002-06-23 00:00:00 Completed [facility] MMR 2002-06-23 00:00:00 Completed [facility] MMR 2002-06-23 00:00:00 Completed [facility] Meningococcal Vaccine 2002-06-23 00:00:00 Completed [facility] IPV 2002-06-23 00:00:00 Completed [facility] Tetanus/Diptheria 2002-06-23 00:00:00 Completed [facility] Meningococcal Vaccine 2002-06-23 00:00:00 Completed [facility] IPV 2002-06-23 00:00:00 Completed [facility] Tetanus/Diptheria 2002-06-23 00:00:00 Completed [facility] HEP B, Adult Dosage 2002-06-23 00:00:00 Completed [facility] MMR 2002-06-23 00:00:00 Completed [facility] Meningococcal Vaccine 2002-06-23 00:00:00 Completed [facility] IPV 2002-06-23 00:00:00 Completed [facility] Tetanus/Diptheria 2002-06-23 00:00:00 Completed [facility] HEP B, Adult Dosage 2002-06-23 00:00:00 Completed [facility] MMR 2002-06-23 00:00:00 Completed [facility] Meningococcal Vaccine 2002-06-23 00:00:00 Completed [facility] IPV 2002-06-23 00:00:00 Completed [facility] Tetanus/Diptheria 2002-06-23 00:00:00 Completed [facility] HEP B, Adult Dosage 2002-06-23 00:00:00 Completed [facility] MMR 2002-06-23 00:00:00 Completed [facility] Meningococcal Vaccine 2002-06-23 00:00:00 Completed [facility] IPV 2002-06-23 00:00:00 Completed [facility] Tetanus/Diptheria 2002-06-23 00:00:00 Completed [facility] HEP B, Adult Dosage 2002-06-23 00:00:00 Completed [facility] MMR 2002-06-23 00:00:00 Completed [facility] Meningococcal Vaccine 2002-06-23 00:00:00 Completed [facility] IPV 2002-06-23 00:00:00 Completed [facility] Tetanus/Diptheria 2002-06-23 00:00:00 Completed [facility] HEP B, Adult Dosage 2002-06-23 00:00:00 Completed [facility] MMR 2002-06-23 00:00:00 Completed [facility] Meningococcal Vaccine 2002-06-23 00:00:00 Completed [facility] IPV 2002-06-23 00:00:00 Completed [facility] Tetanus/Diptheria 2002-06-23 00:00:00 Completed [facility] HEP B, Adult Dosage 2002-06-23 00:00:00 Completed [facility] MMR 2002-06-23 00:00:00 Completed [facility] Meningococcal Vaccine 2002-06-23 00:00:00 Completed [facility] IPV 2002-06-23 00:00:00 Completed [facility] Tetanus/Diptheria 2002-06-23 00:00:00 Completed [facility] HEP B, Adult Dosage 2002-06-23 00:00:00 Completed [facility] MMR 2002-06-23 00:00:00 Completed [facility] Meningococcal Vaccine 2002-06-23 00:00:00 Completed [facility] IPV 2002-06-23 00:00:00 Completed [facility] Tetanus/Diptheria 2002-06-23 00:00:00 Completed [facility] HEP B, Adult Dosage 2002-06-23 00:00:00 Completed [facility] MMR 2002-06-23 00:00:00 Completed [facility] Meningococcal Vaccine 2002-06-23 00:00:00 Completed [facility] IPV 2002-06-23 00:00:00 Completed [facility] Tetanus/Diptheria 2002-06-23 00:00:00 Completed [facility] HEP B, Adult Dosage 2002-06-23 00:00:00 Completed [facility] MMR 2002-06-23 00:00:00 Completed [facility] Meningococcal Vaccine 2002-06-23 00:00:00 Completed [facility] IPV 2002-06-23 00:00:00 Completed [facility] Tetanus/Diptheria 2002-06-23 00:00:00 Completed [facility] HEP B, Adult Dosage 2002-06-23 00:00:00 Completed [facility] MMR 2002-06-23 00:00:00 Completed [facility] Meningococcal Vaccine 2002-06-23 00:00:00 Completed [facility] IPV 2002-06-23 00:00:00 Completed [facility] Tetanus/Diptheria 2002-06-23 00:00:00 Completed [facility] HEP B, Adult Dosage 2002-06-23 00:00:00 Completed [facility] MMR 2002-06-23 00:00:00 Completed [facility] Meningococcal Vaccine 2002-06-23 00:00:00 Completed [facility] IPV 2002-06-23 00:00:00 Completed [facility] Tetanus/Diptheria 2002-06-23 00:00:00 Completed [facility] HEP B, Adult Dosage 2002-06-23 00:00:00 Completed [facility] MMR 2002-06-23 00:00:00 Completed [facility] Meningococcal Vaccine 2002-06-23 00:00:00 Completed [facility] IPV 2002-06-23 00:00:00 Completed [facility] Tetanus/Diptheria 2002-06-23 00:00:00 Completed [facility] HEP B, Adult Dosage 2002-06-23 00:00:00 Completed [facility] MMR 2002-06-23 00:00:00 Completed [facility] Meningococcal Vaccine 2002-06-23 00:00:00 Completed [facility] IPV 2002-06-23 00:00:00 Completed [facility] Tetanus/Diptheria 2002-06-23 00:00:00 Completed [facility] HEP B, Adult Dosage 2002-06-23 00:00:00 Completed [facility] MMR 2002-06-23 00:00:00 Completed [facility] Meningococcal Vaccine 2002-06-23 00:00:00 Completed [facility] IPV 2002-06-23 00:00:00 Completed [facility] Tetanus/Diptheria 2002-06-23 00:00:00 Completed [facility] HEP B, Adult Dosage 2002-06-23 00:00:00 Completed [facility] MMR 2002-06-23 00:00:00 Completed [facility] Meningococcal Vaccine 2002-06-23 00:00:00 Completed [facility] IPV 2002-06-23 00:00:00 Completed [facility] Tetanus/Diptheria 2002-06-23 00:00:00 Completed [facility] HEP B, Adult Dosage 2002-06-23 00:00:00 Completed [facility] MMR 2002-06-23 00:00:00 Completed [facility] Meningococcal Vaccine 2002-06-23 00:00:00 Completed [facility] IPV 2002-06-23 00:00:00 Completed [facility] Tetanus/Diptheria 2002-06-23 00:00:00 Completed [facility] HEP B, Adult Dosage 2002-06-23 00:00:00 Completed [facility] MMR 2002-06-23 00:00:00 Completed [facility] Meningococcal Vaccine 2002-06-23 00:00:00 Completed [facility] IPV 2002-06-23 00:00:00 Completed [facility] Tetanus/Diptheria 2002-06-23 00:00:00 Completed [facility] HEP B, Adult Dosage 2002-06-23 00:00:00 Completed [facility] MMR 2002-06-23 00:00:00 Completed [facility] Meningococcal Vaccine 2002-06-23 00:00:00 Completed [facility] IPV 2002-06-23 00:00:00 Completed [facility] Tetanus/Diptheria 2002-06-23 00:00:00 Completed [facility] HEP B, Adult Dosage 2002-06-23 00:00:00 Completed [facility] MMR 2002-06-23 00:00:00 Completed [facility] Meningococcal Vaccine 2002-06-23 00:00:00 Completed [facility] IPV 2002-06-23 00:00:00 Completed [facility] Tetanus/Diptheria 2002-06-23 00:00:00 Completed [facility] HEP B, Adult Dosage 2002-06-23 00:00:00 Completed [facility] MMR 2002-06-23 00:00:00 Completed [facility] Meningococcal Vaccine 2002-06-23 00:00:00 Completed [facility] IPV 2002-06-23 00:00:00 Completed [facility] Tetanus/Diptheria 2002-06-23 00:00:00 Completed [facility] HEP B, Adult Dosage 2002-06-23 00:00:00 Completed [facility] MMR 2002-06-23 00:00:00 Completed [facility] Meningococcal Vaccine 2002-06-23 00:00:00 Completed [facility] IPV 2002-06-23 00:00:00 Completed [facility] Tetanus/Diptheria 2002-06-23 00:00:00 Completed [facility] HEP B, Adult Dosage 2002-06-23 00:00:00 Completed [facility] MMR 2002-06-23 00:00:00 Completed [facility] Meningococcal Vaccine 2002-06-23 00:00:00 Completed [facility] IPV 2002-06-23 00:00:00 Completed [facility] Tetanus/Diptheria 2002-06-23 00:00:00 Completed [facility] HEP B, Adult Dosage 2002-06-23 00:00:00 Completed [facility] HEP B, Adult Dosage 2002-06-23 00:00:00 Completed [facility] MMR 2002-06-23 00:00:00 Completed [facility] Meningococcal Vaccine 2002-06-23 00:00:00 Completed [facility] IPV 2002-06-23 00:00:00 Completed [facility] Tetanus/Diptheria 2002-06-23 00:00:00 Completed [facility] SARS-COV-2 COVID-19 PFIZER VACCINE Unknown Completed [facility] SARS-COV-2 COVID-19 PFIZER VACCINE Unknown Completed [facility] HEPATITIS A Unknown Completed [facility] Typhoid Vaccine, Vi Capsular Polysaccharide, IM Unknown [facility] Typhoid Vaccine, Vi Capsular Polysaccharide, IM Unknown Completed [facility]ine [facility]ine [facility]ine [facility] Anthrax Vaccine Unknown Completed [facility] Twinrix (hep a/hep b) Unknown Completed [facility] Twinrix (hep a/hep b) Unknown Completed [facility] Twinrix (hep a/hep b) Unknown Completed [facility] HEP B, Adult Dosage Unknown Completed [facility] Influenza Virus Vaccine Nasal Unknown Completed [facility] Influenza Virus Vaccine Nasal Unknown Completed [facility] Influenza Virus Vaccine Nasal Unknown Completed [facility] Flu Split Virus, PSA Unknown Completed [facility] Flu Split Virus, PSA Unknown Completed [facility] Flu Split Virus, PSA Unknown Completed [facility] Influenza Virus Vaccine (3+ yrs) Unknown Completed [facility] Influenza Virus Vaccine Unknown Completed [facility] MMR Unknown Completed [facility] Meningococcal Vaccine Unknown Completed [facility] IPV Unknown Completed [facility]anus[facility]iptheria [facility] Smallpox Unknown Completed [facility] SARS-COV-2 COVID-19 PFIZER VACCINE Unknown Completed [facility] SARS-COV-2 COVID-19 PFIZER VACCINE Unknown [facility] [facility] Unknown Completed [facility] SARS-COV-2 COVID-19 PFIZER VACCINE Unknown Completed [facility] SARS-COV-2 COVID-19 PFIZER VACCINE Unknown Completed [facility] HEPATITIS A Unknown Completed [facility] Typhoid Vaccine, Vi Capsular Polysaccharide, IM Unknown [facility] Typhoid Vaccine, Vi Capsular Polysaccharide, IM Unknown [facility] Anthrax Vaccine Unknown Completed [facility] Anthrax Vaccine Unknown Completed [facility]rax Vaccine [facility] Vaccine [facility] Com[facility] Twinrix (hep a/hep b) Unknown Completed [facility] Twinrix (hep a/hep b) Unknown Completed [facility] Twinrix (hep a/hep b) Unknown Completed [facility] HEP B, Adult Dosage Unknown Completed [facility] Influenza Virus Vaccine Nasal Unknown Completed [facility] Influenza Virus Vaccine Nasal Unknown Completed [facility] Influenza Virus Vaccine Nasal Unknown Completed [facility] Flu Split Virus, PSA Unknown Completed [facility] Flu Split Virus, PSA Unknown Completed [facility] Flu Split Virus, PSA Unknown Completed [facility] Influenza Virus Vaccine (3+ yrs) Unknown Completed [facility] Influenza Virus Vaccine Unknown Completed [facility] MMR Unknown Completed [facility] Meningococcal Vaccine Unknown Completed [facility] IPV Unknown Completed [facility] Tetanus/Diptheria Unknown [facility] Smallpox Unknown Completed [facility] SARS-COV-2 COVID-19 PFIZER VACCINE Unknown Completed [facility] SARS-COV-2 COVID-19 PFIZER VACCINE Unknown Completed [facility] TDAP Unknown Completed [facility] SARS-COV-2 COVID-19 PFIZER VACCINE Unknown Completed [facility] SARS-COV-2 COVID-19 PFIZER VACCINE Unknown Completed [facility] HEPATITIS A Unknown Completed [facility] Typhoid Vaccine, Vi Capsular Polysaccharide, IM Unknown [facility] Typhoid Vaccine, Vi Capsular Polysaccharide, IM Unknown Completed [facility] Anthrax Vaccine Unknown [facility]rax Vaccine [facility] Com[facility] Anthrax Vaccine Unknown Completed [facility] Anthrax Vaccine Unknown [facility]ine [facility] Twin[facility] (hep a/hep b) Unknown Completed [facility] Twinrix (hep a/hep b) Unknown Completed [facility] Twinrix (hep a/hep b) Unknown Completed [facility] HEP B, Adult Dosage Unknown Completed [facility] Influenza Virus Vaccine Nasal Unknown Completed [facility] Influenza Virus Vaccine Nasal Unknown Completed [facility] Influenza Virus Vaccine Nasal Unknown Completed [facility] Flu Split Virus, PSA Unknown Completed [facility] Flu Split Virus, PSA Unknown Completed [facility] Flu Split Virus, PSA Unknown Completed [facility] Influenza Virus Vaccine (3+ yrs) Unknown Completed [facility] Influenza Virus Vaccine Unknown Completed [facility] MMR Unknown Completed [facility] Meningococcal Vaccine Unknown Completed [facility] IPV Unknown Completed [facility] Tetanus/Diptheria Unknown Completed [facility] TDAP Unknown Completed [facility] Smallpox Unknown Completed [facility] SARS-COV-2 COVID-19 PFIZER VACCINE Unknown Completed [facility] SARS-COV-2 COVID-19 PFIZER VACCINE Unknown Completed [facility] TDAP Unknown Completed [facility] SARS-COV-2 COVID-19 PFIZER VACCINE Unknown Completed [facility] SARS-COV-2 COVID-19 PFIZER VACCINE Unknown Completed [facility] HEPATITIS A Unknown Completed [facility] Typhoid Vaccine, Vi Capsular Polysaccharide, IM Unknown Completed [facility] Typhoid Vaccine, Vi Capsular Polysaccharide, IM Unknown Completed [facility] Anthrax Vaccine Unknown [facility]ine [facility] Anthrax Vaccine [facility]rax Vaccine [facility] Anthrax Vaccine Unknown Com[facility] Twinrix (hep a/hep b) Unknown Completed [facility] Twinrix (hep a/hep b) Unknown Completed [facility] Twinrix (hep a/hep b) Unknown Completed [facility] HEP B, Adult Dosage Unknown Completed [facility] Influenza Virus Vaccine Nasal Unknown Completed [facility] Influenza Virus Vaccine Nasal Unknown Completed [facility] Influenza Virus Vaccine Nasal Unknown Completed [facility] Flu Split Virus, PSA Unknown Completed [facility] Flu Split Virus, PSA Unknown Completed [facility] Flu Split Virus, PSA Unknown Completed [facility] Influenza Virus Vaccine (3+ yrs) Unknown Completed [facility] Influenza Virus Vaccine Unknown Completed [facility] MMR Unknown Completed [facility] Meningococcal Vaccine Unknown Completed [facility] IPV Unknown Completed [facility] Tetanus/Diptheria Unknown [facility] Smallpox Unknown Completed [facility] SARS-COV-2 COVID-19 PFIZER VACCINE Unknown Completed [facility] SARS-COV-2 COVID-19 PFIZER VACCINE Unknown Completed [facility] TDAP Unknown Completed [facility] SARS-COV-2 COVID-19 PFIZER VACCINE Unknown Completed [facility] SARS-COV-2 COVID-19 PFIZER VACCINE Unknown Completed [facility] HEPATITIS A Unknown Completed [facility] Typhoid Vaccine, Vi Capsular Polysaccharide, IM Unknown Completed [facility] Typhoid Vaccine, Vi Capsular Polysaccharide, IM Unknown Completed [facility] Anthrax Vaccine Unknown Completed [facility] Anthrax Vaccine Unknown Completed [facility] Anthrax Vaccine Unknown [facility]ine [facility]rax Vaccine Unknown Completed [facility] Twinrix (hep a/hep b) Unknown Completed [facility] Twinrix (hep a/hep b) Unknown Completed [facility] Twinrix (hep a/hep b) Unknown Completed [facility] HEP B, Adult Dosage Unknown Completed [facility] Influenza Virus Vaccine Nasal Unknown Completed [facility] Influenza Virus Vaccine Nasal Unknown Completed [facility] Influenza Virus Vaccine Nasal Unknown Completed [facility] Flu Split Virus, PSA Unknown Completed [facility] Flu Split Virus, PSA Unknown Completed [facility] Flu Split Virus, PSA Unknown Completed [facility] Influenza Virus Vaccine (3+ yrs) Unknown Completed [facility] Influenza Virus Vaccine Unknown Completed [facility] MMR Unknown Completed [facility] Meningococcal Vaccine Unknown Completed [facility] IPV Unknown Completed [facility] Tetanus/Diptheria Unknown [facility] Smallpox Unknown Completed [facility] SARS-COV-2 COVID-19 PFIZER VACCINE Unknown Completed [facility] SARS-COV-2 COVID-19 PFIZER VACCINE Unknown Completed [facility] TDAP Unknown Completed [facility] SARS-COV-2 COVID-19 PFIZER VACCINE Unknown Completed [facility] SARS-COV-2 COVID-19 PFIZER VACCINE Unknown Completed [facility] HEPATITIS A Unknown Completed [facility] Typhoid Vaccine, Vi Capsular Polysaccharide, IM Unknown Completed [facility] Typhoid Vaccine, Vi Capsular Polysaccharide, IM Unknown Completed [facility] Anthrax Vaccine Unknown Completed [facility] Anthrax Vaccine Unknown [facility]rax Vaccine Unknown Com[facility] Anthrax Vaccine Unknown [facility] Twin[facility] (hep a/hep b) Unknown Completed [facility] Twinrix (hep a/hep b) Unknown Completed [facility] Twinrix (hep a/hep b) Unknown Completed [facility] HEP B, Adult Dosage Unknown Completed [facility] Influenza Virus Vaccine Nasal Unknown Completed [facility] Influenza Virus Vaccine Nasal Unknown Completed [facility] Influenza Virus Vaccine Nasal Unknown Completed [facility] Flu Split Virus, PSA Unknown Completed [facility] Flu Split Virus, PSA Unknown Completed [facility] Flu Split Virus, PSA Unknown Completed [facility] Influenza Virus Vaccine (3+ yrs) Unknown Completed [facility] Influenza Virus Vaccine Unknown Completed [facility] MMR Unknown Completed [facility] Meningococcal Vaccine Unknown Completed [facility] IPV Unknown Completed [facility] Tetanus/Diptheria [facility] Smallpox Unknown Completed [facility] SARS-COV-2 COVID-19 PFIZER VACCINE Unknown Completed [facility] SARS-COV-2 COVID-19 PFIZER VACCINE Unknown Completed [facility] TDAP Unknown Completed [facility] Vital Signs Vital Name Observation Time Observation Value Comments S ource Systolic blood pressure 2023-02-23 13:43:00 129 mm[Hg] [facility] Diastolic blood pressure 2023-02-23 13:43:00 77 mm[Hg] [facility] Heart rate 2023-02-23 13:43:00 62 /min [facility] Body temperature 2023-02-23 13:43:00 36.11 Radha [facility] Respiratory rate 2023-02-23 13:43:00 18 /min [facility] Body height 2023-02-23 13:43:00 175.3 cm [facility] Body weight 2023-02-23 13:43:00 86.728 kg [facility] BMI 2023-02-23 13:43:00 28.24 kg/m2 [facility] Oxygen saturation in Arterial blood by Pulse oximetry 2023-02-23 13:43:00 99 /min r/a [facility] Systolic blood pressure 2022-10-10 14:42:00 106 mm[Hg] [facility] Diastolic blood pressure 2022-10-10 14:42:00 71 mm[Hg] [facility] Heart rate 2022-10-10 14:42:00 91 /min [facility] Body temperature 2022-10-10 14:42:00 36.44 Radha [facility] Respiratory rate 2022-10-10 14:42:00 19 /min [facility] Body height 2022-10-10 14:42:00 175.3 cm [facility] Body weight 2022-10-10 14:42:00 89.585 kg [facility] BMI 2022-10-10 14:42:00 29.17 kg/m2 [facility] Oxygen saturation in Arterial blood by Pulse oximetry 2022-10-10 14:42:00 97 /min [facility] Systolic blood pressure 2022-05-23 16:40:00 121 mm[Hg] [facility] Diastolic blood pressure 2022-05-23 16:40:00 78 mm[Hg] [facility] Heart rate 2022-05-23 16:40:00 51 /min [facility] Body temperature 2022-05-23 16:40:00 36.56 Radha [facility] Respiratory rate 2022-05-23 16:40:00 18 /min [facility] Body height 2022-05-23 16:40:00 175.3 cm [facility] Body weight 2022-05-23 16:40:00 85.276 kg [facility] BMI 2022-05-23 16:40:00 27.76 kg/m2 [facility] Oxygen saturation in Arterial blood by Pulse oximetry 2022-05-23 16:40:00 98 /min [facility] Systolic blood pressure 2021-02-14 19:31:00 108 mm[Hg] [facility] Diastolic blood pressure 2021-02-14 19:31:00 75 mm[Hg] [facility] Heart rate 2021-02-14 19:31:00 82 /min [facility] Body temperature 2021-02-14 19:31:00 36.56 Radha [facility] Respiratory rate 2021-02-14 19:31:00 18 /min [facility] Oxygen saturation in Arterial blood by Pulse oximetry 2021-02-14 19:31:00 97 /min [facility] Body height 2021-02-14 18:48:00 175.3 cm [facility] Body weight 2021-02-14 18:48:00 86.183 kg [facility] BMI 2021-02-14 18:48:00 28.06 kg/m2 [facility] Procedures Procedure Date / Time Performed Performing Clinician Source AUTHORIZATION FOR RELEASE OF PHI 2023-04-13 05:01:00 Doctor Unassigned, [place] [facility] ALLERGY PERCUTANEOUS SKIN TEST-AEROALLERGENS 2023-02-23 00:00:00 Windy Burch [facility] SPIROMETRY DIAGNOSTIC SCREENING 2023-02-23 00:00:00 Windy Burch [facility] XR CHEST 2 VW 2022-11-06 15:32:13 Love Reyes [facility] CONSENT/REFUSAL FOR DIAGNOSIS AND TREATMENT 2022-11-06 15:11:48 Doctor Unassigned, [place] [facility] ASSIGNMENT OF BENEFITS 2022-11-06 15:11:37 Docto r Unassigned, [place] [facility] IMMTRAC2 CONSENT 2021-02-14 05:01:00 Doctor Unas signed, [place] [facility] Encounters Start Date/Time End Date/Time Encounter Type Admission Type Attending Clinicians Care Facility Care Department Encounter ID Source 2023-10-07 00:00:00 2023-10-07 00:00:00 Patient Secure Love Velasquez [facility] 1.2.840.114 350.1.13.10 4.2.7.2.686 [id number] [facility] 2023-07-25 00:00:00 2023-07-25 00:00:00 Patient Secure g Love Reyes [facility] 1.2.840.114 350.1.13.10 4.2.7.2.686 [id number] [facility] 2023-04-27 00:00:00 2023-04-27 00:00:00 Patient Secure g Love Reyes [facility] 1.2.840.114 350.1.13.10 4.2.7.2.686 [id number] [facility] 2023-04-22 00:00:00 2023-04-22 00:00:00 Patient Secure g Love Reyes [facility] 1.2840.114 350.1.13.10 4.2.7.2.686 [id number] [facility] 2023-04-13 08:30:00 2023-04-13 08:30:00 Outpatient R PAMELA LUNA [facility] [id number] [facility] 2023-04-13 00:00:00 2023-04-13 00:00:00 Orders Only Doctor Unassigned, [place] [facility] 1.2840.114 350.1.13.10 4.2.7.2.686 [id number] [facility] 2023-02-23 08:30:00 2023-02-23 11:00:26 Outpatient R PAMELA LUNA [facility] [id number] [facility] 2023-02-23 08:30:00 2023-02-23 11:00:26 Office Visit Pamela Luna [facility] 1.2840.114 350.1.13.10 4.2.7.2.686 [id number] [facility] 2023-02-10 00:00:00 2023-02-10 00:00:00 Patient Secure g Love Reyes [facility] 1.2.840.114 350.1.13.10 4.2.7.2.686 [id number] [facility] 2023-01-19 00:00:00 2023-01-19 00:00:00 Patient Secure g Sarmad Reyesuel Lizz [facility] 1.2.840.114 350.1.13.10 4.2.7.2.686 [id number] [facility] 2023-01-12 11:00:00 2023-01-12 11:00:00 Outpatient R PAMELA LUNA [facility] [id number] [facility] 2023-01-09 10:00:00 2023-01-09 10:00:00 Outpatient VISHNU OAKLEY SHIWAN [facility] [id number] [facility] 2022-11-21 10:00:00 2022-11-21 10:00:00 Outpatient R VISHNU LONGO [facility] [id number] [facility] 2022-11-17 00:00:00 2022-11-17 00:00:00 Patient Secure Love Reyes [facility] 1.2.840.114 350.1.13.10 4.2.7.2.686 [id number] [facility] 2022-11-06 10:15:50 2022-11-06 23:59:00 Outpatient R LOVE REYES [facility] [id number] [facility] 2022-11-06 10:15:00 2022-11-06 23:59:00 Hospital Encounter Love Reyes [facility] 1.2.840.114 350.1.13.10 4.2.7.2.686 [id number] [facility] 2022-11-06 00:00:00 2022-11-06 00:00:00 Orders Only Doctor Unassigned, [place] [facility] 1.2.840.114 350.1.13.10 4.2.7.2.686 [id number] [facility] 2022-11-06 00:00:00 2022-11-06 00:00:00 Patient Secure Msg Love Reyes [facility] 1.2.840.114 350.1.13.10 4.2.7.2.686 [id number] [facility] 2022-11-05 00:00:00 2022-11-05 00:00:00 Patient Secure Msg Love Reyes [facility] 1.2.840.114 350.1.13.10 4.2.7.2.686 [id number] [id number] [facility] 2022-11-05 00:00:00 2022-11-05 00:00:00 Patient Secure Msg Love Reyes [facility] 1.2.840.114 350.1.13.10 4.2.7.2.686 [id number] [facility] 2022-11-04 00:00:00 2022-11-04 00:00:00 Telephone Love Reyes [facility] 1.2.840.114 350.1.13.10 4.2.7.2.686 [id number] [facility] 2022-11-04 00:00:00 2022-11-04 00:00:00 Nurse Triage Izabela Hernandez [facility] 1.2.840.114 350.1.13.10 4.2.7.2.686 [id number] [facility] 2022-10-10 10:00:00 2022-10-10 10:54:44 Outpatient R ERIC LOVE [facility] [id number] [facility] 2022-10-10 10:00:00 2022-10-10 10:54:44 Office Visit Love Reyes [facility] 1.2.840.114 350.1.13.10 4.2.7.2.686 [id number] [facility] 2022-10-07 00:00:00 2022-10-07 00:00:00 Telephone Love Reyes [facility] 1.2.840.114 350.1.13.10 4.2.7.2.686 [id number] [id number] [facility] 2022-09-30 00:00:00 2022-09-30 00:00:00 Telephone Love Reyes [facility] 1.2.840.114 350.1.13.10 4.2.7.2.686 [id number] [facility] 2022-05-23 10:30:00 2022-05-23 11:16:37 Office Visit Love Reyes [facility] 1.2.840.114 350.1.13.10 4.2.7.2.686 [id number] [facility] 2022-05-23 09:15:00 2022-05-23 09:30:00 [place] Guide Visit Pcp-Lab Love Reyes [facility] 1.2.840.114 350.1.13.10 4.2.7.2.686 [id number] [facility] 2022-05-23 09:15:00 2022-05-23 09:15:00 Outpatient R LOVE REYES [facility] [id number] [facility] 2021-02-14 13:58:55 2021-02-14 14:58:55 Nurse Visit Therapy, Adc Elgin Freed [facility] 1.2.840.114 350.1.13.10 4.2.7.2.686 [id number] [facility] 2021-02-14 14:00:00 2021-02-14 14:00:00 Outpatient Milagros ACHARYA ELGIN [facility] [id number] [facility] 2021-02-14 00:00:00 2021-02-14 00:00:00 Orders Only Doctor Unassigned, [place] [facility] 1.2.840.114 350.1.13.10 4.2.7.2.686 [id number] [facility] Notes Date/Time Note Provider Source 2023-02-06 16:53:02 [id number]:53:02 Addended by: DICK TINSLEY MD on: 02/06/2023 04:53 PM Modules accepted: Orders [id number] [id number]:53:02Addendum [id number] [id number] for patient [id number] Xf[id number] [id number]:53:021.2.840 .402382.1.72.3.15|1.2.840.383709.1.13.104. [id number] [facility] 2023-01-20 09:42:36 [id number]:42:36F ormatting of this note might be different from the original.Called and spoke with patient regarding current infection. [id number] encounter [id number]:42:47Telephone encounter [id number]1 9|[id number] for patient [id number] Hw[id number] [id number]:42:471.2.840 .807961.1.72.3.15|1.2.840.915595.1.13.104. [id number] [facility]"
--- NOTE | 2023-12-15 23:22 | ER ---
Nurse's Notes [facility] Name: Maxime Layton Age: 38 yrs Sex: Male : 1985 Arrival Date: 12/15/2023 Time: 22:34 Bed Waiting Private MD: Diagnosis: - Family history:: not pertinent. Assessment: 12/14 23:20 Reassessment: Registration staff states that [facility]. ED Course: 22:35 Patient arrived in ED. mr 23:22 Markus Martinez MD is Attending Physician. Administered Medications: No medications were administered Outcome: 23:20 Eloped from waiting room, before seeing physician 23:22 Patient left the ED. Signatures: Jeanna Burnette, Mary Walters, RN RN Markus Martinez MD MD sp4
--- NOTE | 2023-12-16 23:23 | EDPHYS ---
Physician Documentation [facility] Name: Maxime Layton Age: 38 yrs Sex: Male : 1985 Arrival Date: 12/15/2023 Time: 22:34 Bed Waiting Private MD: ED Physician Markus Martinez HPI: 12/15 21:28 This 38 yrs old Male presents to ER via Unassigned with complaints of Post sp4 Surgical Pain, Arm swelling. 21:28 Patient has eloped from the waiting area prior to being seen by emergency physician. sp4 - Family history:: not pertinent. ROS: 21:28 Constitutional: Negative for fever, chills, and weight loss, sp4 MDM: 20:49 Patient medically screened. sp4 21:28 Data reviewed: nurses notes. sp4 Administered Medications: No medications were administered Disposition: 21:29 Chart complete. sp4 Disposition Summary: 12/15/23 23:21 Eloped Notes: Disposition: before being seen by provider ss Reason: unknown ss Signatures: Mary Gabriel, RN RN ss Markus Martinez MD MD sp4
== END 2023-12-15 23:22 | disposition left against medical advice (07) ==
LOC: ER 22:34
DX: Z02.9 Encounter for administrative examinations, unspecified (principal)